=== PATIENT | female | born 1990 | race American Indian/Alaskan Native ===

== ENCOUNTER 2017-02-22 10:02 | Emergency (ER) | payer MEDICAID, OTHER ==
[2017-02-22 10:55] LABS: Basophils % (Auto) 1.1 % (0.0-1.8); Eosinophils % (Auto) 3.4 % (0.0-4.3); Mean Corpuscular HGB Conc 30 % (30-34); Mean Corpuscular Volume 72 fl (79-97); Platelet Count 261 K/mm3 (140-440); Red Blood Count 4.83 M/mm3 (3.65-5.03); White Blood Count 6.6 K/mm3 (4.5-11.0)
[2017-02-22 10:56] LABS: Hematocrit 34.6 % (30.3-42.9); Hemoglobin 10.5 gm/dl (10.1-14.3); Mean Corpuscular Hemoglobin 22 pg (28-32); Red Cell Distribution Width 20.8 % (13.2-15.2)
--- NOTE | 2017-02-22 14:04 | Emergency Department Report ---
ED Female HPI - General Chief complaint: Vaginal Bleeding Stated complaint: VAG BLEEDING Time Seen by Provider: 02/22/17 13:10 Source: patient Mode of arrival: Ambulatory Limitations: No Limitations - History of Present Illness Initial comments: 26-year-old female with a history of right ovarian cyst presents to the hospital complaining of right lower quadrant pain and vaginal bleeding. Patient states she has similar right lower quadrant abdominal pain with each of her menstrual cycles. Patient expresses concern that typically her menstrual cycle last 3 days then resolves. Patient had a menstrual cycle "the end of January" and then restarted bleeding again. Patient stating she is only having spotting at this time but was no why she's having irregular bleeding. No reports of vomiting, fever, or dysuria. Patient does not have a GOLF MANAGER doctor. She has been told in the past that she had a right ovarian cyst. - Related Data Previous Rx's Medication Instructions Recorded Last Taken Type Butalbit/Acetamin/Caff/Codeine 1 each PO Q6H PRN #20 capsule 05/25/14 Unknown Rx [Fioricet/Codeine 23-032-59-30] Ibuprofen [Motrin] 600 mg PO Q8H PRN #30 tablet 02/22/17 Unknown Rx metroNIDAZOLE [Flagyl] 500 mg PO Q12HR #14 tab 02/22/17 Unknown Rx Allergies Allergy/AdvReac Type Severity Reaction Status Date / Time No Known Allergies Allergy Unverified 05/25/14 13:53 ED Review of Systems ROS: Stated complaint: VAG BLEEDING/ SICKLE CELL PAIN Other details as noted in HPI Comment: All other systems reviewed and negative Other: Constitutional: No fevers chills Eyes: No eye pain visual changes ENT: No ear pain or throat pain Neck: Denies pain Respiratory: Denies cough wheezing shortness of breath Cardiovascular: Denies chest pain, palpitations, syncope GI: as per hpi : Denies dysuria Musculoskeletal: Denies back pain, joint swelling Skin: Denies rash, lesions, erythema Neurologic: Denies headache, numbness, weakness Psychiatric: Denies suicidal ideation, hallucinations ED Past Medical Hx - Past Medical History Previous Medical History?: No - Surgical History Past Surgical History?: No - Social History Smoking Status: Never Smoker Substance Use Type: None - Medications Home Medications: Home Medications Medication Instructions Recorded Confirmed Last Taken Type Butalbit/Acetamin/Caff/Codeine 1 each PO Q6H PRN #20 capsule 05/25/14 Unknown Rx [Fioricet/Codeine 65-734-22-30] Ibuprofen [Motrin] 600 mg PO Q8H PRN #30 tablet 02/22/17 Unknown Rx metroNIDAZOLE [Flagyl] 500 mg PO Q12HR #14 tab 02/22/17 Unknown Rx ED Physical Exam - General Limitations: No Limitations - Other Other exam information: General: No limitations, patient is alert in no acute distress Head exam: Atraumatic, normocephalic Eyes exam: Normal appearance, pupils equal reactive to light, extraocular movements intact ENT: Moist mucous membrane, normal oropharynx Neck exam: Normal inspection, full range of motion, no meningismus nontender Respiratory exam: Clear to auscultation bilateral, no wheezes, rales, crackles Cardiovascular: Normal rate and rhythm, normal heart sounds Abdomen: Soft, nondistended, right lower quadrant tenderness, with normal bowel sounds, no rebound, or guarding : Tenderness to the right lower quadrant, vaginal spotting, mild CMT and right adnexal tenderness Extremity: Full range of motion normal inspection no deformity Back: Normal Inspection, full range of motion, no tenderness Neurologic: Alert, oriented x3, cranial nerves intact, no motor or sensory deficit Psychiatric: normal affect, normal mood Skin: Warm, dry, intact ED Course Vital Signs 02/22/17 02/22/17 10:20 13:31 Temperature 98.3 F 98.6 F Pulse Rate 63 76 Respiratory 18 16 Rate Blood Pressure 117/76 Blood Pressure 117/76 110/68 [Right] O2 Sat by Pulse 100 99 Oximetry - Reevaluation(s) Reevaluation #1: 02/22/17 16:20 pt stable, declined pain meds in ed ED Medical Decision Making - Lab Data Result diagrams: 02/22/17 10:42 Lab Results 02/22/17 02/22/17 02/22/17 Range/Units 10:42 10:42 13:28 WBC 6.6 (4.5-11.0) K/mm3 RBC 4.83 (3.65-5.03) M/mm3 Hgb 10.5 (10.1-14.3) gm/dl Hct 34.6 (30.3-42.9) % MCV 72 L (79-97) fl MCH 22 L (28-32) pg MCHC 30 (30-34) % RDW 20.8 H (13.2-15.2) % Plt Count 261 (140-440) K/mm3 Lymph % (Auto) 25.1 (13.4-35.0) % [place] % (Auto) 6.2 (0.0-7.3) % Eos % (Auto) 3.4 (0.0-4.3) % Baso % (Auto) 1.1 (0.0-1.8) % Lymph # 1.7 (1.2-5.4) K/mm3 [place] # 0.4 (0.0-0.8) K/mm3 Eos # 0.2 (0.0-0.4) K/mm3 Baso # 0.1 (0.0-0.1) K/mm3 Seg Neutrophils % 64.2 (40.0-70.0) % Seg Neutrophils # 4.2 (1.8-7.7) K/mm3 Urine Color Yellow (Yellow) Urine Turbidity Clear (Clear) Urine pH 6.0 (5.0-7.0) Ur Specific [place] 1.020 (1.003-1.030) Urine Protein <15 mg/dl (Negative) mg/dL Urine Glucose (UA) Neg (Negative) mg/dL Urine Ketones Neg (Negative) mg/dL Urine Blood Lg (Negative) Urine Nitrite Neg (Negative) Urine Bilirubin Neg (Negative) Urine Urobilinogen < 2.0 (<2.0) mg/dL Ur Leukocyte Esterase Sm (Negative) Urine WBC (Auto) 16.0 H (0.0-6.0) /HPF Urine RBC (Auto) 4.0 (0.0-6.0) /HPF U Epithel Cells (Auto) 1.0 (0-13.0) /HPF Urine Mucus 2+ /HPF Urine HCG, Qual Negative (Negative) Blood Type O NEGATIVE Antibody Screen Negative - Radiology Data Radiology results: report reviewed (transvaginal/pelvic ultrasound: 1.6 cm left ovary) - Medical Decision Making Patient had pain during vaginal exam and ultrasound shows left-sided cyst. Patient is not have any significant symptoms suggestive of appendicitis since she lacks fever, leukocytosis, nausea, or vomiting. Pain is recurrent with menstrual cycles and patient also expresses concern of irregular vaginal bleeding. Patient was treated for bacterial vaginosis. Gonorrhea chlamydia pending. Outpatient follow-up with [facility] will be recommended. - Differential Diagnosis ovarian cyst, STD, vaginitis, cervicitis, appendicitis, Critical Care Time: No Critical care attestation.: If time is entered above; I have spent that time in minutes in the direct care of this critically ill patient, excluding procedure time. ED Disposition Clinical Impression: RLQ abdominal pain, Bacterial vaginosis, Irregular menses Ovarian cyst Qualifiers: Laterality: left Qualified Code(s): N83.202 - Unspecified ovarian cyst, left side Disposition: DISCHARGED TO HOME OR SELFCARE Is pt being admited?: No Condition: Stable Instructions: Bacterial Vaginosis (ED), Ovarian Cyst (ED), Abdominal Pain (ED) , Dysfunctional Uterine Bleeding (ED) Additional Instructions: Take medication as prescribed. Return if symptoms worsen. Follow-up with the GOLF MANA[facility] doctor provided.Your gonorrhea and chlamydia tests are pending and take approximately 3-4 days result. You may obtain results in medical records with a photo ID. You may also obtain results through the follow-up doctor office via medical record request. Prescriptions: Ibuprofen [Motrin] 600 mg PO Q8H PRN #30 tablet PRN Reason: Pain metroNIDAZOLE [Flagyl] 500 mg PO Q12HR #14 tab Referrals: [facility] [Provider Group] - 3-5 Days Forms: STI Treatment and Prevention Time of Disposition: 16:22
[2017-02-22 14:24] LABS: Bilirubin,Urine NEG (Negative); Blood,Urine LG (Negative); Ketones,Urine NEG (Negative); Leukocyte Esterase,Urine SM (Negative); Mucus,Urine 2+ /HPF; Nitrite,Urine NEG (Negative); Protein,Urine <15 mg/dL mg/dL (Negative); Urobilinogen,Urine < 2.0 mg/dL (<2.0)
--- NOTE | 2017-02-22 16:10 | Ultrasound Report ---
Transabdominal and transvaginal pelvic ultrasound. History: Pelvic pain and vaginal bleeding. Findings: The uterus is normal in size and configuration. There are no focal uterine abnormalities. The endometrial echo measures 10 mm in thickness. The right ovary is normal. There is a 1.3 cm cyst in the left ovary. There is a small volume of fluid in the cul-de-sac. Impression: 1.6 cm cyst in the left ovary with minimal free fluid in the cul-de-sac.
[2017-02-22 18:32] VITALS: BP 126/78
== END 2017-02-22 18:32 | disposition home or self-care (01) ==
LOC: ED 10:02
DX: N83.202 Unspecified ovarian cyst, left side (principal); N76.0 Acute vaginitis; N92.6 Irregular menstruation, unspecified
CPT/HCPCS: 36415; 76830; 76856; 81001; 81025; 85025; 86850; 86900; 86901; 87210; 87591

== ENCOUNTER 2017-02-28 13:39 | Emergency (ER) | payer MEDICAID ==
[2017-02-28 14:17] VITALS: BP 131/78
[2017-02-28] MEDS ORDERED: ZITHROMAX PO ONE (16:21)
[2017-02-28] MEDS ORDERED: XYLOCAINE 1% MPF 5 mL INFILTRATI ONE (16:22)
[2017-02-28] MEDS ORDERED: ROCEPHIN IM ONE (16:22)
--- NOTE | 2017-02-28 16:24 | Emergency Department Report ---
HPI - General Chief Complaint: Urogenital-Female - HPI HPI: 26-year-old -[place] female here for follow-up with STD results. Patient's results came back positive for Chlamydia. She reports that she came in on 02/22/2017 and was tested. Patient reports she is still having some vaginal discharge she denies any nausea no vomiting she denies any fever or chills. No known drug allergies. ED Past Medical Hx - Past Medical History Previous Medical History?: No - Surgical History Past Surgical History?: No - Social History Smoking Status: Never Smoker Substance Use Type: None - Medications Home Medications: Home Medications Medication Instructions Recorded Confirmed Last Taken Type Butalbit/Acetamin/Caff/Codeine 1 each PO Q6H PRN #20 capsule 05/25/14 Unknown Rx [Fioricet/Codeine 07-360-20-30] Ibuprofen [Motrin] 600 mg PO Q8H PRN #30 tablet 02/22/17 Unknown Rx metroNIDAZOLE [Flagyl] 500 mg PO Q12HR #14 tab 02/22/17 Unknown Rx ED Review of Systems ROS: Stated complaint: ER FOLLOW UP Other details as noted in HPI Constitutional: denies: chills, fever Eyes: denies: eye pain, eye discharge, vision change ENT: denies: ear pain, throat pain Gastrointestinal: denies: abdominal pain, nausea, diarrhea Genitourinary: discharge. denies: urgency, dysuria, frequency, hematuria Musculoskeletal: denies: back pain, joint swelling, arthralgia Skin: denies: rash, lesions Neurological: denies: headache, weakness, paresthesias Physical Exam - Physical Exam Vital Signs: Vital Signs 02/28/17 14:15 Temperature 98.4 F Pulse Rate 69 Respiratory 18 Rate Blood Pressure 131/78 O2 Sat by Pulse 100 Oximetry General: GENERAL: Alert and oriented x3, no apparent distress, Normal Gait, atraumatic. HEAD: Head is normocephalic and a-traumatic. EYES: Extra ocular muscles are intact. Pupils are equal, round, and reactive to light and accommodation. LUNGS: Symetrical with respiration, No wheezing, no rales or crackles, CTAB. HEART: S1, S2 present, regular rate and rhythm without murmur, no rubs, no gallops. ABDOMEN: No organomegaly was noted,Positive bowel sounds, soft, and non- distended. . Nontender to palpation on all Quadrants, NO CVA tenderness. NEUROLOGIC: No focal Deficit, Cranial nerves II through XII are grossly intact. No loss of sensation, No facial droop, PSYCHIATRIC: Mood is congruent with affect, denies suicidal or homicidal ideations. SKIN: Warm and dry, No lesions, No ulceration or induration present ED Course Vital Signs 02/28/17 14:15 Temperature 98.4 F Pulse Rate 69 Respiratory 18 Rate Blood Pressure 131/78 O2 Sat by Pulse 100 Oximetry ED Medical Decision Making - Medical Decision Making Patient's been evaluated by this provider fast track. Discussed with patient will treat her for STD. Discussed the patient she needs to be rechecked in 2 weeks. Also discussed the patient she needs to inform her sexual partner that she tested positive for chlamydia. Patient verbalized understanding. Critical care attestation.: If time is entered above; I have spent that time in minutes in the direct care of this critically ill patient, excluding procedure time. ED Disposition Clinical Impression: Chlamydia infection Disposition: DISCHARGED TO HOME OR SELFCARE Is pt being admited?: No Does the pt Need Aspirin: No Condition: Stable Instructions: Chlamydia Infection (ED) Additional Instructions: Is informed your sexual partner that she tested positive for chlamydia. Also I recommend for you to have a follow-up exam within 2 weeks. This can be done by primary care provider or the health department Referrals: PRIMARY CARE [Primary Care Provider] - 3-5 Days Forms: STI Treatment and Prevention, Work/School Release Form(ED)
== END 2017-02-28 16:20 | disposition home or self-care (01) ==
LOC: ED 13:39
DX: A74.9 Chlamydial infection, unspecified (principal)
CPT/HCPCS: 96372; 99282; J0696

== ENCOUNTER 2017-06-13 17:53 | Emergency (ER) | payer MEDICAID ==
--- NOTE | 2017-06-13 21:43 | Emergency Department Report ---
ED Female HPI - General Chief complaint: Urogenital-Female Stated complaint: PAIN IN LOWER STOMACH Time Seen by Provider: 06/13/17 20:40 Source: patient, old records reviewed Mode of arrival: Ambulatory Limitations: No Limitations - History of Present Illness Initial comments: PT states she had some lower abd pain that started today. PT states that when she was in the bath, she felt a "bump" inside her vagina. PT states she is having itching and clear discharge. PT states that she is concerned because she has a hx of a bacterial infection that she was dx with in January of this year and she states [facility] never followed up. MD Complaint: vaginal discharge, pelvic pain -: Gradual, hour(s) Location: suprapubic Severity: moderate Severity scale (0 -10): 6 Consistency: constant Improves with: none Worsens with: none Are you Now?: No Associated Symptoms: vaginal discharge, abdominal pain. denies: vaginal bleeding, nausea/vomiting, fever/chills, rash - Related Data Sexually active: Yes Previous Rx's Medication Instructions Recorded Last Taken Type metroNIDAZOLE 0.75% [Metrogel 1 applicatio .ROUTE HS 5 Days 06/13/17 Unknown Rx 0.75% TOPICAL] Allergies Allergy/AdvReac Type Severity Reaction Status Date / Time No Known Allergies Allergy Verified 06/13/17 18:02 ED Review of Systems ROS: Stated complaint: PAIN IN LOWER STOMACH Other details as noted in HPI Comment: All other systems reviewed and negative Constitutional: denies: chills, fever ENT: denies: throat pain Gastrointestinal: abdominal pain. denies: nausea, vomiting Genitourinary: discharge. denies: dysuria, abnormal menses Musculoskeletal: denies: back pain Skin: denies: rash ED Past Medical Hx - Past Medical History Previous Medical History?: No - Surgical History Past Surgical History?: No - Social History Smoking Status: Current Every Day Smoker Substance Use Type: Alcohol - Medications Home Medications: Home Medications Medication Instructions Recorded Confirmed Last Taken Type metroNIDAZOLE 0.75% [Metrogel 1 applicatio .ROUTE HS 5 Days 06/13/17 Unknown Rx 0.75% TOPICAL] ED Physical Exam - General Limitations: No Limitations General appearance: alert, in no apparent distress - Head Head exam: Present: atraumatic, normocephalic, normal inspection - Eye Eye exam: Present: normal appearance, PERRL, EOMI. Absent: conjunctival injection - ENT ENT exam: Present: normal exam, mucous membranes moist, normal external ear exam - Neck Neck exam: Present: normal inspection, full ROM - Respiratory Respiratory exam: Present: normal lung sounds bilaterally. Absent: respiratory distress, chest wall tenderness - Cardiovascular Cardiovascular Exam: Present: regular rate, normal rhythm, normal heart sounds - GI/Abdominal GI/Abdominal exam: Present: soft - External exam: Present: lesions (1 external lesion. not tender, no abscess noted ), other (female sampler radioactive waste at bedside ) Speculum exam: Present: erythema, vaginal discharge (thin watery discharge ), cervical discharge, other (multiple lesions to cervix). Absent: normal speculum exam, vaginal bleeding Bi-manual exam: Present: normal bi-manual exam, other (adenopathy to steve inguinal canal ). Absent: cervical motion tendernes, adnexal tenderness, adnexal mass, uterine enlargement, uterine tenderness - Extremities Exam Extremities exam: Present: normal inspection, full ROM - Back Exam Back exam: Present: normal inspection, full ROM. Absent: tenderness, CVA tenderness (R), CVA tenderness (L), muscle spasm, paraspinal tenderness, vertebral tenderness - Neurological Exam Neurological exam: Present: alert, oriented X3, normal gait - Psychiatric Psychiatric exam: Present: normal affect, normal mood - Skin Skin exam: Present: warm, dry, intact, normal color ED Course Vital Signs 06/13/17 18:02 Temperature 98.6 F Pulse Rate 84 Respiratory 20 Rate Blood Pressure 123/66 O2 Sat by Pulse 100 Oximetry - Reevaluation(s) Reevaluation #1: 06/13/17 22:30 PT aware of abnormal physical exam findings and need for follow up with OB/ [facility]TER Reevaluation #2: 06/13/17 23:25 PT aware of lab results. PT states she can not swallow pills. PT aware she will need to follow up with ob/ store worker. PT has no questions at this time. - Pulse Oximetry Interpretation Digit-Finger Initial Pulse Oximetry Readin Actions Taken: none ED Medical Decision Making - Lab Data Laboratory Results - last 72 hr 06/13/17 22:23 Urine Color Yellow Urine Turbidity Clear Urine pH 6.0 Ur Specific [place] 1.021 Urine Protein 30 mg/dl Urine Glucose (UA) Neg Urine Ketones Neg Urine Blood Neg Urine Nitrite Neg Urine Bilirubin Neg Urine Urobilinogen 2.0 Ur Leukocyte Esterase Tr Urine WBC (Auto) 6.0 Urine RBC (Auto) 3.0 U Epithel Cells (Auto) 2.0 Urine Mucus 2+ Urine HCG, Qual Negative - Differential Diagnosis uti, , std, vaginitis, abscess Critical Care Time: No Critical care attestation.: If time is entered above; I have spent that time in minutes in the direct care of this critically ill patient, excluding procedure time. ED Disposition Clinical Impression: Bacterial vaginosis, Pelvic pain, Female genital lesion Disposition: TO HOME OR SELFCARE Is pt being admited?: No Does the pt Need Aspirin: No Condition: Stable Instructions: Bacterial Vaginosis (ED), Cervicitis (ED) Additional Instructions: No sex x 7 days Follow up with OB/ [facility] KNIFE SETTER Do not drink alcohol with [place] OTC Motrin/ Tylenol as needed for pain return to the ED if worsening or concerns Prescriptions: metroNIDAZOLE 0.75% [Metrogel 0.75% TOPICAL] 1 applicatio .ROUTE HS 5 Days Referrals: [facility] [Provider Group] - 3-5 Days PRIMARY CARE, [Primary Care Provider] - 3-5 Days [facility] [Outside] - 3-5 Days Forms: STI Treatment and Prevention Time of Disposition: 23:26
[2017-06-13] MEDS ORDERED: ROCEPHIN IM ONE (22:21)
[2017-06-13] MEDS ORDERED: XYLOCAINE 1% MPF 5 mL INFILTRATI ONE (22:21)
[2017-06-13] MEDS ORDERED: ZITHROMAX PO ONE (22:21)
[2017-06-13 23:16] LABS: Bilirubin,Urine NEG (Negative); Blood,Urine NEG (Negative); Ketones,Urine NEG (Negative); Leukocyte Esterase,Urine TR (Negative); Mucus,Urine 2+ /HPF; Nitrite,Urine NEG (Negative)
[2017-06-13 23:48] VITALS: BP 130/74
== END 2017-06-13 23:48 | disposition home or self-care (01) ==
LOC: ED 17:53
DX: N76.0 Acute vaginitis (principal); N89.8 Other specified noninflammatory disorders of vagina; F17.200 Nicotine dependence, unspecified, uncomplicated
CPT/HCPCS: 81001; 81025; 87210; 87591; 96372; 99284; J0696

== ENCOUNTER 2018-07-08 16:14 | Emergency (ER) | payer OTHER, MEDICAID ==
[2018-07-08 16:27] VITALS: BP 118/83
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
== END 2018-07-08 18:52 | disposition home or self-care (01) ==
LOC: ED 16:14
DX: S46.812A Strain of other muscles, fascia and tendons at shoulder and upper arm level, left arm, initial encounter (principal); S39.012A Strain of muscle, fascia and tendon of lower back, initial encounter; M54.2 Cervicalgia; Z79.899 Other long term (current) drug therapy; V49.09XA Driver injured in collision with other motor vehicles in nontraffic accident, initial encounter; Y93.89 Activity, other specified; Y99.8 Other external cause status; Y92.488 Other paved roadways as the place of occurrence of the external cause
CPT/HCPCS: 99282

== ENCOUNTER 2019-02-19 15:15 | Emergency (ER) | payer MEDICAID ==
[2019-02-19 15:25] VITALS: BP 108/64
--- NOTE | 2019-02-19 15:42 | Emergency Department Report ---
Blank Doc - Documentation Documentation: 28 y o female presents with vaginal irritation and d/c x 2-3 days doesnt think she has an std, no pelvic pain, f,n,v, ua,upt PALn: [facility] evalutae bv/yeast
--- NOTE | 2019-02-19 17:30 | Emergency Department Report ---
ED Female HPI - General Chief complaint: Urogenital-Female Stated complaint: IRRITATION/BACTERIA Time Seen by Provider: 02/19/19 15:40 Source: patient Mode of arrival: Ambulatory Limitations: No Limitations - History of Present Illness MD Complaint: vaginal discharge (and vaginal irritation feels it is her classic bacterial vaginal infection and request medication for treatment. not worried about an STD) -: Gradual Location: suprapubic Radiation: non-radiating Severity: moderate Quality: burning Consistency: constant Improves with: none Worsens with: none Are you Now?: No Associated Symptoms: vaginal discharge, nausea/vomiting. denies: abdominal pain, loss of appetite, dysuria, hematuria, shortness of breath, syncope - Related Data Sexually active: Yes Previous Rx's Medication Instructions Recorded Last Taken Type metroNIDAZOLE 0.75%(NF) [Metrogel 1 applicatio .ROUTE HS 5 Days tube 06/13/17 Unknown Rx 0.75% TOPICAL] Cyclobenzaprine [Flexeril 10 MG 10 mg PO TID PRN #15 tablet 07/08/18 Unknown Rx TAB] Ibuprofen [Motrin 800 MG tab] 800 mg PO Q8HR PRN #15 tablet 07/08/18 Unknown Rx metroNIDAZOLE [Metrogel 1%] 1 applicatio TP QDAY #30 gel..gram. 02/19/19 Unknown Rx metroNIDAZOLE [Metronidazole] 2,000 mg PO ONCE #4 tablet 02/19/19 Unknown Rx Allergies Allergy/AdvReac Type Severity Reaction Status Date / Time No Known Allergies Allergy Verified 02/19/19 15:17 ED Review of Systems ROS: Stated complaint: IRRITATION/BACTERIA Other details as noted in HPI Constitutional: denies: chills, fever Eyes: denies: eye pain, eye discharge, vision change ENT: denies: ear pain, throat pain Respiratory: denies: cough, shortness of breath, wheezing Cardiovascular: denies: chest pain, palpitations Endocrine: no symptoms reported Gastrointestinal: denies: abdominal pain, nausea, diarrhea Genitourinary: discharge. denies: urgency, dysuria Musculoskeletal: denies: back pain, joint swelling, arthralgia Skin: denies: rash, lesions Neurological: denies: headache, weakness, paresthesias Psychiatric: denies: anxiety, depression Hematological/Lymphatic: denies: easy bleeding, easy bruising ED Past Medical Hx - Past Medical History Previous Medical History?: No - Surgical History Past Surgical History?: No - Social History Smoking Status: Never Smoker Substance Use Type: None - Medications Home Medications: Home Medications Medication Instructions Recorded Confirmed Last Taken Type metroNIDAZOLE 0.75%(NF) [Metrogel 1 applicatio .ROUTE HS 5 Days tube 06/13/17 Unknown Rx 0.75% TOPICAL] Cyclobenzaprine [Flexeril 10 MG 10 mg PO TID PRN #15 tablet 07/08/18 Unknown Rx TAB] Ibuprofen [Motrin 800 MG tab] 800 mg PO Q8HR PRN #15 tablet 07/08/18 Unknown Rx metroNIDAZOLE [Metrogel 1%] 1 applicatio TP QDAY #30 gel..gram. 02/19/19 Unknown Rx metroNIDAZOLE [Metronidazole] 2,000 mg PO ONCE #4 tablet 02/19/19 Unknown Rx ED Physical Exam - General Limitations: No Limitations General appearance: alert, in no apparent distress - Head Head exam: Present: atraumatic, normocephalic - Eye Eye exam: Present: normal appearance, PERRL, EOMI Pupils: Present: normal accommodation - ENT ENT exam: Present: mucous membranes moist - Neck Neck exam: Present: normal inspection - Respiratory Respiratory exam: Present: normal lung sounds bilaterally. Absent: respiratory distress - Cardiovascular Cardiovascular Exam: Present: regular rate, normal rhythm. Absent: systolic murmur, diastolic murmur, rubs, gallop - GI/Abdominal GI/Abdominal exam: Present: soft, normal bowel sounds - Extremities Exam Extremities exam: Present: normal inspection - Back Exam Back exam: Present: normal inspection - Neurological Exam Neurological exam: Present: alert, oriented X3 - Psychiatric Psychiatric exam: Present: normal affect, normal mood - Skin Skin exam: Present: warm, dry, intact, normal color. Absent: rash ED Course Vital Signs 02/19/19 15:24 Temperature 98.8 F Pulse Rate 76 Respiratory 18 Rate Blood Pressure 108/64 O2 Sat by Pulse 100 Oximetry Critical care attestation.: If time is entered above; I have spent that time in minutes in the direct care of this critically ill patient, excluding procedure time. ED Disposition Clinical Impression: Vaginitis Disposition: DC-01 TO HOME OR SELFCARE Is pt being admited?: No Does the pt Need Aspirin: No Condition: Stable Instructions: Bacterial Vaginosis (ED), Vaginitis (ED) Referrals: CARBUCCIA,SALENA, MD [Primary Care Provider] - 3-5 Days
[2019-02-19 17:38] LABS: Bacteria,Urine 2+ /HPF (Negative); Bilirubin,Urine NEG (Negative); Blood,Urine SM (Negative); Color,Urine Yellow (Yellow); Mucus,Urine 3+ /HPF; Protein,Urine <15 mg/dL mg/dL (Negative); Urobilinogen,Urine < 2.0 mg/dL (<2.0)
[2019-02-19 17:42] LABS: HCG Qualitative,Urine Negative (Negative)
== END 2019-02-19 17:44 | disposition home or self-care (01) ==
LOC: ED 15:15
DX: N76.0 Acute vaginitis (principal); R11.2 Nausea with vomiting, unspecified
CPT/HCPCS: 81001; 81025; 99283

== ENCOUNTER 2019-06-20 12:59 | Emergency (ER) | payer OTHER, MEDICAID ==
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
[2019-06-20 13:13] VITALS: BP 116/82
--- NOTE | 2019-06-20 14:19 | XRay Report ---
CHEST 2 VIEWS INDICATION: Substernal chest pain for one day. COMPARISON: FINDINGS: Support devices: None. Heart: Within normal limits. Lungs/pleura: No acute air space or interstitial disease. No pneumothorax. Additional findings: Scoliosis IMPRESSION: No acute findings. Signer Name: Federico Willard Jr, MD Signed: 06/20/2019 2:15 PM Workstation Name: [id number]
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
== END 2019-06-20 14:46 | disposition home or self-care (01) ==
LOC: ED 12:59
DX: R07.89 Other chest pain (principal); Z79.899 Other long term (current) drug therapy; V43.52XA Car driver injured in collision with other type car in traffic accident, initial encounter; Y93.89 Activity, other specified; Y92.488 Other paved roadways as the place of occurrence of the external cause; Y99.8 Other external cause status
CPT/HCPCS: 71046; 99283

== ENCOUNTER 2019-06-24 11:31 | Emergency (ER) | payer MEDICAID, OTHER ==
[2019-06-24 12:22] VITALS: BP 111/71
--- NOTE | 2019-06-24 12:35 | Emergency Department Report ---
Chief Complaint: Skin Rash Stated Complaint: SKIN PEELING/DRY Time Seen by Provider: 06/24/19 12:29 - HPI History of Present Illness: 29 y/o female comes in for bilateral hand peeling. No other complaints. - Exam Vital Signs: Vital Signs 06/24/19 12:21 Temperature 98.5 F Pulse Rate 65 Respiratory 16 Rate Blood Pressure 111/71 O2 Sat by Pulse 100 Oximetry Physical Exam: bilateral hands peeling. No tender no redness. MSE screening note: Focused history and physical exam performed. Due to findings the following was ordered: Patient can follow up with a primary care provider or assistant director of plant operations You can use vaseline. ED Disposition for MSE Clinical Impression: Rash of hands Disposition: DC-01 TO HOME OR SELFCARE Is pt being admited?: No Does the pt Need Aspirin: No Condition: Stable Additional Instructions: Try Vaseline to hands. Follow up with a Primary care provider or Senior Storage Engineer. Referrals: [facility] [Referring] - 3-5 Days BONILLA GARCÍA MD [Staff Physician] - 3-5 Days [facility] [Provider Group] - 3-5 Days
== END 2019-06-24 13:14 | disposition home or self-care (01) ==
LOC: ED 11:31
DX: R21 Rash and other nonspecific skin eruption (principal)
CPT/HCPCS: 99281